=== PATIENT | female | born 1980 | race Caucasian/White ===

== ENCOUNTER 2017-02-26 07:49 | Emergency (ER) | payer OTHER ==
[~2017-02-26] VITALS: Ht 162.6 cm; Wt 64.8 kg
[~2017-02-26 07:49] MED LIST: BUPR-79 PO; CHOL100010 PO; ESCI1TAB10 PO; GABA-112 PO; LEVO88TA PO; MULT-513 PO
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
[2017-02-26 07:59] VITALS: TEMP 36.8; Ht 162.6 cm; Wt 64.8 kg
[2017-02-26] MEDS ORDERED: ONDANSETRON INJ 2 MG/ML 2 ML VIAL IV STA (08:07)
[2017-02-26] MEDS ORDERED: FENTANYL CITRATE INJ 50 MCG/1 ML 2 ML VIAL IV STA (08:07)
[2017-02-26] MEDS ORDERED: SODIUM CHLORIDE 0.9% 500ML 500 ML IV STA (08:07)
[2017-02-26 08:35] LABS: BASO % 0.4 %; BASO ABS # 0.04 K/uL (0-0.2); EOS % 1.8 %; EOS ABS # 0.16 K/uL (0-0.5); HEMATOCRIT 38.1 % (37-47); HEMOGLOBIN 13.3 g/dL (12.0-16.0); IG# 0.02 K/uL (0.00-0.02); LYMPH ABS # 1.99 K/uL (1.2-3.4); MEAN CELL VOLUME 78.7 fL (80-100); MEAN CORPUSCULAR HEMOGLOBIN 27.5 pg (25-34); MEAN CORPUSCULAR HGB CONC 34.9 g/dl (32-36); MONO % 4.7 %; MONO ABS # 0.43 K/uL (0.11-0.59); NEUT % 70.9 %; NEUT ABS # 6.42 K/uL (1.4-6.5); PLATELET COUNT 430 K/uL (130-400); RED CELL DISTRIBUTION WIDTH CV 13.3 % (11.5-14.5); RED CELL DISTRIBUTION WIDTH SD 37.9 fL (36.4-46.3); WHITE BLOOD COUNT 9.06 K/uL (4.8-10.8)
[2017-02-26 08:51] LABS: ALBUMIN 3.7 gm/dl (3.4-5.0); ALT/SGPT 35 U/L (12-78); BLOOD UREA NITROGEN 6 mg/dl (7-18); CALCIUM 9.2 mg/dl (8.5-10.1); CARBON DIOXIDE 25 mmol/L (21-32); CREATININE 0.78 mg/dl (0.60-1.20); GLUCOSE 121 mg/dl (70-99); POTASSIUM 3.2 mmol/L (3.5-5.1); SODIUM 136 mmol/L (136-145)
[2017-02-26 08:54] LABS: ALKALINE PHOSPHATASE 51 U/L (45-117); AST/SGOT 34 U/L (15-37); TOTAL PROTEIN 7.7 gm/dl (6.4-8.2)
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
[2017-02-26] MEDS ORDERED: GABA1CAP4 PO (09:27)
[2017-02-26] MEDS ORDERED: NALT380I SQ (09:27)
[2017-02-26 10:16] VITALS: BP 118/81; PULSE 64; O2SAT 98
== END 2017-02-26 10:46 | disposition home or self-care (01) ==
LOC: EDBD 07:49 → C.EDB 07:50
DX: S00.83XA Contusion of other part of head, initial encounter (principal); S06.0X9A Concussion with loss of consciousness of unspecified duration, initial encounter; V43.53XA Car driver injured in collision with pick-up truck in traffic accident, initial encounter; G89.4 Chronic pain syndrome; F32.9 Major depressive disorder, single episode, unspecified; Z87.891 Personal history of nicotine dependence; Z82.49 Family history of ischemic heart disease and other diseases of the circulatory system; Z84.1 Family history of disorders of kidney and ureter

== ENCOUNTER → 2017-03-11 | Outpatient (CLI) | payer BC ==
[~2017-03-11] MED LIST changes: -ESCI1TAB10 PO; -GABA-112 PO; +GABA1CAP4 PO; +NALT380I SQ
== END | disposition home or self-care (01) ==
LOC: C.LAB1850 10:44
PROVIDERS: ATTEND Family Medicine
DX: R51 Headache (principal)